=== PATIENT | female | born 1980 | race Two or more races ===

== ENCOUNTER 2022-08-12 07:55 | Inpatient (IN) | payer OTHER ==
[~2022-08-12] VITALS: Ht 157.5 cm; Wt 77.6 kg
[2022-08-19] MEDS ORDERED: IBUPROFEN800 MG PO (06:51)
[2022-08-19] MEDS ORDERED: POLY119PG PO (06:51)
[2022-08-19] MEDS ORDERED: GABAPENTIN300 MG PO (06:51)
[2022-08-19] MEDS ORDERED: SIMETHICONE125 M1 PO (06:51)
== END 2022-08-19 08:52 | disposition home or self-care (01) | DRG 743 ==
LOC: OB/GYN 08-17 05:41 → O/R 08-17 05:41 → OB/GYN 08-17 08:00
PROVIDERS: ADMIT Obstetrics & Gynecology; ATTEND Obstetrics & Gynecology
PROC: 0UT90ZZ Resection of Uterus, Open Approach (ICD-10-PCS; principal; 2022-08-17 08:30)
DX: N80.03 Adenomyosis of the uterus (principal); N72 Inflammatory disease of cervix uteri; Z20.822 Contact with and (suspected) exposure to COVID-19

== ENCOUNTER 2022-08-23 12:49 | Inpatient (IN) | payer OTHER ==
[~2022-08-23] VITALS: Ht 157.5 cm; Wt 72.6 kg
[~2022-08-23 12:49] MED LIST: GABAPENTIN300 MG PO; IBUPROFEN800 MG PO; POLY119PG PO; SIMETHICONE125 M1 PO
== END 2022-09-03 11:42 | disposition home or self-care (01) | DRG 919 ==
LOC: ER 12:49 → OB/GYN 08-24 09:09
PROVIDERS: ADMIT Obstetrics & Gynecology; ATTEND Obstetrics & Gynecology
PROC: BW21ZZZ Computerized Tomography (CT Scan) of Abdomen and Pelvis (ICD-10-PCS; principal; 2022-08-23)
PROC: B246ZZZ Ultrasonography of Right and Left Heart (ICD-10-PCS; 2022-08-26)
PROC: BW21ZZZ Computerized Tomography (CT Scan) of Abdomen and Pelvis (ICD-10-PCS; 2022-08-27)
PROC: BW2GZZZ Computerized Tomography (CT Scan) of Pelvic Region (ICD-10-PCS; 2022-08-31)
DX: N99.840 Postprocedural hematoma of a genitourinary system organ or structure following a genitourinary system procedure (principal); A41.9 Sepsis, unspecified organism; K68.11 Postprocedural retroperitoneal abscess; D64.9 Anemia, unspecified; Z20.822 Contact with and (suspected) exposure to COVID-19; Z88.8 Allergy status to other drugs, medicaments and biological substances